=== PATIENT | female | born 1980 | race African-American/Black ===

== ENCOUNTER 2019-08-22 12:16 | Inpatient (IN) | payer SELFPAY ==
[2019-08-22 12:42] VITALS: BMI 21.1
--- NOTE | 2019-08-22 13:49 | HP ---
CIWA Score Nausea/Vomitin-No Nausea/No Vomiting Muscle Tremors: 3 Anxiety: 1-Mildly Anxious Agitation: 1-Slight > Activity Paroxysmal Sweats: No Perspiration Orientation: 0-Oriented Tacttile Disturbances: 0-None Auditory Disturbances: 0-None Visual Disturbances: 0-None Headache: 1-Very Mild CIWA-Ar Total Score: 6 - Admission Criteria OASAS Guidelines: Admission for Medically Managed Detox: Requires at least one of the followin. CIWA greater than 12 2. Seizures within the past 24 hours 3. Delirium tremens within the past 24 hours 4. Hallucinations within the past 24 hours 5. Acute intervention needed for co occurring medical disorder 6. Acute intervention needed for co occurring psychiatric disorder 7. Severe withdrawal that cannot be handled at a lower level of care (continued vomiting, continued diarrhea, abnormal vital signs) requiring intravenous medication and/or fluids 8. Admitting History and Physical - Admission Chief Complaint: alcohol abuse History Source: Patient Limitations to Obtaining History: No Limitations - Past Surgical History Past Surgical History: Yes: - Smoking History Smoking history: Current every day smoker Have you smoked in the past 12 months: Yes Aproximately how many cigarettes per day: 8 - Alcohol/Substance Use Hx Alcohol Use: Yes History of Substance Use: reports: Marijuana - Social History Usual Living Arrangement: Yes: With Parent Admission [facility] Chief Complaint: alcohol abuse Allergies/Adverse Reactions: Allergies Allergy/AdvReac Type Severity Reaction Status Date / Time pineapples Allergy Uncoded 08/22/19 12:43 History of Present Illness: 38 y.o. F no significant medical history presenting for detox. Has never been to a detox program in the past. Patient started going to an outpatient program who referred her to detox here. ETOH: Daily use since january but has been drinking since age 21. Drinks 6-7 shots / day; beer once in a while. Last drink morning. Has had 3 falls recently, went to [facility] & says all head imaging was negative. Never had a seizure. Marijuana: 2x/ week. Last use sunday Cigarettes: 7-10 cigarettes daily since age 20. PSH: C-sxn Social hx: unemployed. Has a good support system, her mom. Has 1 daughter 14 yrs ago. All: pineapple Meds: none Exam Limitations: No Limitations - Ebola screening Have you traveled outside of the country in the last 21 days: No Have you had contact with anyone from an Ebola affected area: No Do you have a fever: No - Review of Systems Constitutional: No Symptoms Reported EENT: reports: No Symptoms Reported Respiratory: reports: No Symptoms reported Cardiac: reports: No Symptoms Reported GI: reports: No Symptoms Reported : reports: No Symptoms Reported Musculoskeletal: reports: No Symptoms Reported Integumentary: reports: No Symptoms Reported Neuro: reports: Tremors Endocrine: reports: No Symptoms Reported Hematology: reports: No Symptoms Reported Psychiatric: reports: No Sypmtoms Reported, Mood/Affect Appropiate, Orientated x3 Patient History - Patient Surgical History Hx Section: Yes - Reproductive History Patient is a Female of Child Bearing Age (11 -55 yrs old): Yes Last Menstrual Period: 07/27/19 - Smoking Cessation Smoking history: Current every day smoker Aproximately how many cigarettes per day: 8 Initiated information on smoking cessation: Yes 'Breaking Loose' booklet given: 08/22/19 - Substance & Tx. History Hx Alcohol Use: Yes Substance Use Type: Alcohol, Marijuana - Substances abused Alcohol Substance route: Oral Frequency: Daily Amount used: 7-8 nips of vodka Age of first use: 21 Date of last use: 08/20/19 Marijuana/Hashish Substance route: Smoking Frequency: 1-2 times per week Amount used: $10 Age of first use: 8 Date of last use: 08/21/19 Admission Physical Exam [facility] - Vital Signs Vital Signs: Vital Signs - 24 hr 08/22/19 12:38 Temperature 97.9 F Pulse Rate 105 H Respiratory 18 Rate Blood Pressure 115/77 - Physical General Appearance: Yes: Within Normal Limits, No Apparent Distress HEENTM: Yes: Normal ENT Inspection, Normocephalic, Normal Voice, GODWIN, Pharynx Normal Respiratory: Yes: Lungs Clear, Normal Breath Sounds, No Respiratory Distress, No Accessory Muscle Use Neck: Yes: Within Normal Limits Cardiology: Yes: Regular Rhythm, Regular Rate, S1, S2 Abdominal: Yes: Normal Bowel Sounds, Non Tender, Soft Extremities: Yes: Normal Inspection, Normal Range of Motion Neurological: Yes: training and development officer II-XII NML intact, Fully Oriented, Alert, Normal Response Integumentary: Yes: Within Normal Limits Lymphatic: Yes: Within Normal Limits - Diagnostic (1) Alcohol abuse Current Visit: Yes Status: Acute Breathalyzer - Breathalyzer Breathalyzer: 0.084 Urine Drug Screen - Test Device Lot number: [id number] Expiration date: 05/07/21 - Control Is test valid?: Yes - Results Drug screen NEGATIVE: No Urine drug screen results: THC-Marijuana Inpatient Rehab Admission - Rehab Decision to Admit Inpatient rehab admission?: No
[2019-08-22] MEDS ORDERED: MAG HYDROX/AL HYDROX/SIMETH 30 ML UNIT-DOSE CUP PO PRN (14:12)
[2019-08-22] MEDS ORDERED: METHOCARBAMOL 500 MG TABLET PO PRN (14:12)
[2019-08-22] MEDS ORDERED: MAGNESIUM HYDROX 2400MG/30ML ORAL SUSPENSION 30 ML CUP PO PRN (14:12)
[2019-08-22] MEDS ORDERED: BISMUTH SUBSALICYLATE 524 MG/30 ML UD PO PRN (14:12)
[2019-08-22] MEDS ORDERED: NICOTINE POLACRILEX 2 MG GUM BUC PRN (14:12)
[2019-08-22] MEDS ORDERED: ACETAMINOPHEN 325 MG TABLET (FP) PO PRN ×2 (14:12)
[2019-08-22] MEDS ORDERED: hydrOXYzine PAMOATE 25 MG CAPSULE (FP) PO PRN (14:12)
[2019-08-22] MEDS ORDERED: diazePAM 5 MG TABLET PO PRN (14:12)
[2019-08-22] MEDS ORDERED: MENTHOL/PHENOL 1 EACH UD MM PRN (14:12)
[2019-08-22] MEDS ORDERED: IBUPROFEN 400 MG TABLET (FP) PO PRN (14:12)
[2019-08-22] MEDS ORDERED: MAGNESIUM CITRATE 300 ML BOTTLE PO PRN (14:12)
[2019-08-22] MEDS: NICOTINE 14 MG/24 HOURS TOPICAL PATCH TD SCH (15:28)
--- NOTE | 2019-08-22 16:01 | PN ---
Teaching Attending Note Name of Resident: Lindsay Rojas ATTENDING PHYSICIAN STATEMENT I saw and evaluated the patient. I reviewed the resident's note and discussed the case with the resident. I agree with the resident's findings and plan as documented. SUBJECTIVE: 38 y.o. female pt here requesting detox from etoh use , reports increased since January 2019 after job loss, current daily use 6-7 shots /lday , occasionally 1 beer , latest use yesterday , reports tremors if not drinking alcohol, reports 3 recent falls assessed in [facility] no injuries . cannabis : 2 x/week . tobacco : 1/2 ppd . PSHx : C-sx , has 14 yr old dtr . lmp July 2019 . OBJECTIVE: wnwd , anxious . Vital Signs - 24 hr 08/22/19 12:38 Temperature 97.9 F Pulse Rate 105 H Respiratory 18 Rate Blood Pressure 115/77 ASSESSMENT AND PLAN: AUD - Valium detox . Nicotine dependence - smoking cessation counseling .
[2019-08-22] MEDS: THIAMINE HCL 100 MG TABLET (FP) PO SCH (22:33)
[2019-08-22] MEDS: MELATONIN 5 MG TABLETS PO PRN (22:33)
[2019-08-22] MEDS: diazePAM 5 MG TABLET PO SCH (22:33)
[2019-08-23] MEDS: diazePAM 5 MG TABLET PO SCH ×3 (05:57→22:26)
[2019-08-23] MEDS: PRENATAL VITAMINS W/ FOLIC ACID TABLET (FP) PO SCH (10:22)
[2019-08-23] MEDS: NICOTINE 14 MG/24 HOURS TOPICAL PATCH TD SCH (10:22)
[2019-08-23 10:30] LABS: HEMATOCRIT 36.9 % (32.4-45.2); HEMOGLOBIN 12.4 GM/dL (10.7-15.3); MCH 35.2 pg (25.7-33.7); MCHC 33.6 g/dl (32.0-36.0); MEAN CELL VOLUME 104.7 fl (80-96); MEAN PLT VOLUME 11.2 fl (7.5-11.1); PLATELET COUNT 139 K/MM3 (134-434); RBC 3.53 M/mm3 (3.60-5.2); RDW 12.5 % (11.6-15.6); WHITE BLOOD COUNT 6.5 K/mm3 (4.0-10.0)
[2019-08-23 10:40] LABS: ALBUMIN 3.3 g/dl (3.4-5.0); BILIRUBIN,TOTAL 0.3 mg/dL (0.2-1); BLOOD UREA NITROGEN 10.8 mg/dL (7-18); CALCIUM 8.9 mg/dL (8.5-10.1); CREATININE 0.6 mg/dL (0.55-1.3); POTASSIUM 3.3 mmol/L (3.5-5.1); TOT PROT 6.3 g/dl (6.4-8.2)
--- NOTE | 2019-08-23 13:00 | PN ---
S CIWA - CIWA Score Nausea/Vomitin-No Nausea/No Vomiting Muscle Tremors: None Anxiety: 3 Agitation: 0-Normal Activity Paroxysmal Sweats: 3 Orientation: 0-Oriented Tacttile Disturbances: 0-None Auditory Disturbances: 0-None Visual Disturbances: 0-None Headache: 2-Mild CIWA-Ar Total Score: 8 S Progress Note (SOAP) Subjective: c/o headache, sweats, anxiety. Objective: 08/23/19 12:56 Vital Signs 08/23/19 08/23/19 06:40 09:15 Temperature 96.9 F L 97.0 F L Pulse Rate 71 94 H Respiratory 18 20 Rate Blood Pressure 113/79 116/79 Laboratory Last Values WBC 6.5 K/mm3 (4.0-10.0) 08/23/19 07:55 RBC 3.53 M/mm3 (3.60-5.2) L 08/23/19 07:55 Hgb 12.4 GM/dL (10.7-15.3) 08/23/19 07:55 Hct 36.9 % (32.4-45.2) 08/23/19 07:55 MCV 104.7 fl (80-96) H 08/23/19 07:55 MCH 35.2 pg (25.7-33.7) H 08/23/19 07:55 MCHC 33.6 g/dl (32.0-36.0) 08/23/19 07:55 RDW 12.5 % (11.6-15.6) 08/23/19 07:55 Plt Count 139 K/MM3 (134-434) 08/23/19 07:55 MPV 11.2 fl (7.5-11.1) H 08/23/19 07:55 Sodium 138 mmol/L (136-145) 08/23/19 07:55 Potassium 3.3 mmol/L (3.5-5.1) L 08/23/19 07:55 Chloride 103 mmol/L (98-107) 08/23/19 07:55 Carbon Dioxide 29 mmol/L (21-32) 08/23/19 07:55 Anion Gap 6 MMOL/L (8-16) L 08/23/19 07:55 BUN 10.8 mg/dL (7-18) 08/23/19 07:55 Creatinine 0.6 mg/dL (0.55-1.3) 08/23/19 07:55 Est GFR (CKD-EPI)AfAm 133.07 08/23/19 07:55 Est GFR (CKD-EPI)NonAf 114.82 08/23/19 07:55 Random Glucose 81 mg/dL (74-106) 08/23/19 07:55 Calcium 8.9 mg/dL (8.5-10.1) 08/23/19 07:55 Total Bilirubin 0.3 mg/dL (0.2-1) 08/23/19 07:55 AST 30 U/L (15-37) 08/23/19 07:55 ALT 22 U/L (13-61) 08/23/19 07:55 Alkaline Phosphatase 60 U/L (45-117) 08/23/19 07:55 Total Protein 6.3 g/dl (6.4-8.2) L 08/23/19 07:55 Albumin 3.3 g/dl (3.4-5.0) L 08/23/19 07:55 POC Urine HCG, Qual Negative 08/22/19 13:39 RPR Titer Nonreactive (NONREACTIVE) 08/23/19 07:55 Labs noted. Assessment: 08/23/19 13:00 AOX3, in no acute respiratory distress. Full ROM, ambulating in the unit. Withdrawal symptoms. Plan: continue detox.
[2019-08-23] MEDS: POTASSIUM CHLORIDE TABS 20 MEQ TABLET.ER (FP) PO SCH ×2 (14:12→17:31)
[2019-08-23] MEDS: THIAMINE HCL 100 MG TABLET (FP) PO SCH (22:26)
[2019-08-23] MEDS: MELATONIN 5 MG TABLETS PO PRN (22:26)
[2019-08-24] MEDS: diazePAM 5 MG TABLET PO SCH ×2 (05:23→18:00)
[2019-08-24] MEDS: PRENATAL VITAMINS W/ FOLIC ACID TABLET (FP) PO SCH (10:05)
[2019-08-24] MEDS: NICOTINE 14 MG/24 HOURS TOPICAL PATCH TD SCH (10:05)
--- NOTE | 2019-08-24 10:09 | PN ---
S CIWA - CIWA Score Nausea/Vomitin-No Nausea/No Vomiting Muscle Tremors: 2 Anxiety: 1-Mildly Anxious Agitation: 1-Slight > Activity Paroxysmal Sweats: No Perspiration Orientation: 0-Oriented Tacttile Disturbances: 0-None Auditory Disturbances: 0-None Visual Disturbances: 0-None Headache: 0-None Present CIWA-Ar Total Score: 4 BHS Progress Note (SOAP) Subjective: 38 years old female admitted on 08/22/19 for alcohol withdrawal sx management treated with valium detox regimen patient tolerated well ate breakfast ambulating on hallway social with peers in day room discuss aftercare with staff Objective: 08/24/19 10:07 Vital Signs Temperature 99.1 F 08/24/19 09:53 Pulse Rate 119 H 08/24/19 09:53 Respiratory Rate 20 08/24/19 09:53 Blood Pressure 124/85 08/24/19 09:53 O2 Sat by Pulse Oximetry (%) Laboratory Last Values WBC 6.5 K/mm3 (4.0-10.0) 08/23/19 07:55 RBC 3.53 M/mm3 (3.60-5.2) L 08/23/19 07:55 Hgb 12.4 GM/dL (10.7-15.3) 08/23/19 07:55 Hct 36.9 % (32.4-45.2) 08/23/19 07:55 MCV 104.7 fl (80-96) H 08/23/19 07:55 MCH 35.2 pg (25.7-33.7) H 08/23/19 07:55 MCHC 33.6 g/dl (32.0-36.0) 08/23/19 07:55 RDW 12.5 % (11.6-15.6) 08/23/19 07:55 Plt Count 139 K/MM3 (134-434) 08/23/19 07:55 MPV 11.2 fl (7.5-11.1) H 08/23/19 07:55 Sodium 138 mmol/L (136-145) 08/23/19 07:55 Potassium 3.3 mmol/L (3.5-5.1) L 08/23/19 07:55 Chloride 103 mmol/L (98-107) 08/23/19 07:55 Carbon Dioxide 29 mmol/L (21-32) 08/23/19 07:55 Anion Gap 6 MMOL/L (8-16) L 08/23/19 07:55 BUN 10.8 mg/dL (7-18) 08/23/19 07:55 Creatinine 0.6 mg/dL (0.55-1.3) 08/23/19 07:55 Est GFR (CKD-EPI)AfAm 133.07 08/23/19 07:55 Est GFR (CKD-EPI)NonAf 114.82 08/23/19 07:55 Random Glucose 81 mg/dL (74-106) 08/23/19 07:55 Calcium 8.9 mg/dL (8.5-10.1) 08/23/19 07:55 Total Bilirubin 0.3 mg/dL (0.2-1) 08/23/19 07:55 AST 30 U/L (15-37) 08/23/19 07:55 ALT 22 U/L (13-61) 08/23/19 07:55 Alkaline Phosphatase 60 U/L (45-117) 08/23/19 07:55 Total Protein 6.3 g/dl (6.4-8.2) L 08/23/19 07:55 Albumin 3.3 g/dl (3.4-5.0) L 08/23/19 07:55 POC Urine HCG, Qual Negative 08/22/19 13:39 RPR Titer Nonreactive (NONREACTIVE) 08/23/19 07:55 lab noted 08/24/19 10:07 repeat K+ pending Assessment: 08/24/19 10:08 alcohol withdrawal sx Plan: continue valium detox regimen
[2019-08-24] MEDS: THIAMINE HCL 100 MG TABLET (FP) PO SCH (22:02)
[2019-08-24] MEDS: MELATONIN 5 MG TABLETS PO PRN (22:03)
[2019-08-25] MEDS ORDERED: diazePAM 5 MG TABLET PO ONE (06:00)
[2019-08-25 09:16] VITALS: BP 99/69; PULSE 104; TEMP 96.1
--- NOTE | 2019-08-25 11:25 | DS ---
[facility] Detox Discharge Summary Admission Date: 08/22/19 Discharge Date: 08/25/19 - History Present History: Alcohol Dependence Additional Comments: 38 years old female admitted on 08/22/19 for alcohol withdrawal sx managemetn treated with valium detox regimen patient is aelrt oriented x 3 respiratory clear lung bilaterally on auscultation skin warm and dry - Physical Exam Results Vital Signs: Vital Signs Temperature 96.1 F L 08/25/19 09:15 Pulse Rate 104 H 08/25/19 09:15 Respiratory Rate 18 08/25/19 09:15 Blood Pressure 99/69 08/25/19 09:15 O2 Sat by Pulse Oximetry (%) Pertinent Admission Physical Exam Findings: alcohol withdrawal sx Laboratory Last Values WBC 6.5 K/mm3 (4.0-10.0) 08/23/19 07:55 RBC 3.53 M/mm3 (3.60-5.2) L 08/23/19 07:55 Hgb 12.4 GM/dL (10.7-15.3) 08/23/19 07:55 Hct 36.9 % (32.4-45.2) 08/23/19 07:55 MCV 104.7 fl (80-96) H 08/23/19 07:55 MCH 35.2 pg (25.7-33.7) H 08/23/19 07:55 MCHC 33.6 g/dl (32.0-36.0) 08/23/19 07:55 RDW 12.5 % (11.6-15.6) 08/23/19 07:55 Plt Count 139 K/MM3 (134-434) 08/23/19 07:55 MPV 11.2 fl (7.5-11.1) H 08/23/19 07:55 Sodium 138 mmol/L (136-145) 08/23/19 07:55 Potassium 4.2 mmol/L (3.5-5.1) 08/24/19 07:40 Chloride 103 mmol/L (98-107) 08/23/19 07:55 Carbon Dioxide 29 mmol/L (21-32) 08/23/19 07:55 Anion Gap 6 MMOL/L (8-16) L 08/23/19 07:55 BUN 10.8 mg/dL (7-18) 08/23/19 07:55 Creatinine 0.6 mg/dL (0.55-1.3) 08/23/19 07:55 Est GFR (CKD-EPI)AfAm 133.07 08/23/19 07:55 Est GFR (CKD-EPI)NonAf 114.82 08/23/19 07:55 Random Glucose 81 mg/dL (74-106) 08/23/19 07:55 Calcium 8.9 mg/dL (8.5-10.1) 08/23/19 07:55 Total Bilirubin 0.3 mg/dL (0.2-1) 08/23/19 07:55 AST 30 U/L (15-37) 08/23/19 07:55 ALT 22 U/L (13-61) 08/23/19 07:55 Alkaline Phosphatase 60 U/L (45-117) 08/23/19 07:55 Total Protein 6.3 g/dl (6.4-8.2) L 08/23/19 07:55 Albumin 3.3 g/dl (3.4-5.0) L 08/23/19 07:55 POC Urine HCG, Qual Negative 08/22/19 13:39 RPR Titer Nonreactive (NONREACTIVE) 08/23/19 07:55 lab noted - Treatment Hospital Course: Detox Protocol Followed, Detoxed Safely, Responded well, Discharged Condition Good, Rehab Referral Accepted Patient has Accepted a Rehab Referral to: community support approach - Medication Discharge Medications: Ambulatory Orders NK [No Known Home Medication] 08/22/19 - Diagnosis (1) Alcohol abuse Status: Acute - AMA Did Patient Leave Against Medical Advice: No CIWA Score - CIWA Score Nausea/Vomitin-No Nausea/No Vomiting Muscle Tremors: 1-None Visible, but [place] Anxiety: 0-No Anxiety, at Ease Agitation: 0-Normal Activity Paroxysmal Sweats: No Perspiration Orientation: 0-Oriented Tacttile Disturbances: 0-None Auditory Disturbances: 0-None Visual Disturbances: 0-None Headache: 0-None Present CIWA-Ar Total Score: 1
== END 2019-08-25 09:50 | disposition home or self-care (01) | DRG 775 ==
LOC: YASAS 12:16 → Y3N 14:29
PROVIDERS: ADMIT Allergy & Immunology; ATTEND Allergy & Immunology
PROC: HZ2ZZZZ Detoxification Services for Substance Abuse Treatment (ICD-10-PCS; principal; 2019-08-22)
DX: F10.230 Alcohol dependence with withdrawal, uncomplicated (principal); F12.10 Cannabis abuse, uncomplicated; F17.210 Nicotine dependence, cigarettes, uncomplicated; R29.6 Repeated falls; Z71.6 Tobacco abuse counseling; Z91.018 Allergy to other foods
CPT/HCPCS: 36415; 80053; 81025; 84132; 85027; 86593